=== PATIENT | female | born 1955 | race Caucasian/White ===

== ENCOUNTER 2016-12-20 10:16 | Outpatient (CLI) | payer MEDICARE, MEDICAID ==
[2016-12-20 11:07] LABS: #Basophils 0.1 thou/uL (0.0-0.2); #Lymphocytes 1.5 thou/uL (1.20-3.40); #Monocytes 0.5 thou/uL (0.11-0.59); #Neutrophils 3.9 thou/uL (1.40-6.50); %Eosinophils 0.2 % (0.0-10.0); %Lymphocytes 25.8 % (21.0-51.0); %Monocytes 7.6 % (0.0-10.0); %Neutrophils 65.5 % (42.0-75.0); Hemoglobin 14.7 g/dL (12.0-16.0); Mean Corpuscular HGB CONC 33.4 g/dL (32.0-36.0); Mean Corpuscular Volume 98.8 fl (81.0-99.0); Mean Platelet Volume 8.8 fL (7.4-10.4); Platelet Count 178 thou/uL (130-400); RBC Distribution Width 15.1 % (11.5-14.5); Red Blood Cell (RBC) Count 4.46 mill/uL (4.20-5.40); White Blood Cell (WBC) Count 5.9 thou/uL (4.8-10.8)
[2016-12-20 11:15] LABS: Hemoglobin A1c 5.1 % (4.0-6.0)
[2016-12-20 11:23] LABS: ALT (SGPT) 17 U/L (8-55); AST (SGOT) 22 U/L (5-34); Albumin 3.8 g/dL (3.5-5.0); Alkaline Phosphatase 58 U/L (40-150); Anion Gap 14 mmol/L (10-20); BUN (Urea Nitrogen) 7 mg/dL (9.8-20.1); Bilirubin, Total 0.6 mg/dL (0.2-1.2); Calc. Creatinine Clearance 0 mL/min (70-130); Carbon Dioxide 27 mmol/L (22-29); Cardiac Risk 3.5 (Less than 4.5); Chloride 106 mmol/L (98-107); Cholesterol 197 mg/dl (< 200 Desired); Estimated GFR-MDRD 70; Globulin 2.9 g/dL (2.4-3.5); Glucose 104 mg/dL (70-105); HDL Cholesterol 57 mg/dL (>60 Neg Risk); LDL Cholesterol, Calculated 102 mg/dL; Potassium 3.8 mmol/L (3.5-5.1); Protein, Total 6.7 g/dL (6.0-8.3); Sodium 143 mmol/L (136-145); Triglycerides 189 mg/dL (Less than 150)
[2016-12-20 11:42] LABS: Vitamin D, 25 Hydroxy 30.8 ng/ml (> 30.0)
[2016-12-20 11:55] LABS: Clarity Slightly Cloudy (Clear); Leukocyte Trace (Negative); Specific Gravity, Urine 1.025 (1.005-1.030)
[2016-12-20 11:57] LABS: Glucose, Urine (Dipstick) Negative (Negative); Nitrite Positive (Negative); Protein, Urine (Dipstick) Negative (Neg-Trace)
[2016-12-20 11:58] LABS: Bilirubin Negative (Negative); Blood, Urine Small (Negative); Urobilinogen 0.2 mg/dL (0.2-1.0)
[2016-12-20 12:01] LABS: Bacteria/HPF 4+ HPF (None Seen)
[2016-12-21 22:24] LABS: HPV High Risk Type 16 Negative (Negative); HPV High Risk Type 18 Negative (Negative); HPV Other High Risk Types Negative (Negative)
== END 2016-12-20 10:17 ==
LOC: MADLABBHPM 10:16
PROVIDERS: ATTEND Family Medicine
DX: Z01.419 Encounter for gynecological examination (general) (routine) without abnormal findings (principal)
CPT/HCPCS: 36415; 80053; 80061; 81001; 82306; 83036; 84443; 85025; 87624; 88142; G0123

== ENCOUNTER 2017-09-19 11:26 | Outpatient (CLI) | payer MEDICARE, OTHER | END 2017-09-19 11:27 | disposition home or self-care (01) | LOC: MADLABBHPM 11:26 | PROVIDERS: ATTEND Family Medicine | DX: R35.0 Frequency of micturition (principal) | CPT/HCPCS: 36415; 87086 ==

== ENCOUNTER 2018-03-19 13:53 | Emergency (ER) | payer MEDICARE, OTHER ==
[2018-03-19] MEDS ORDERED: HYDROcodone/Acetaminophen 10/325 mg Tablet ONE (14:27)
[2018-03-19] MEDS ORDERED: Ibuprofen 800 MG TAB ONE (14:27)
[2018-03-19] MEDS ORDERED: Acetaminophen 325 MG TAB ONE (14:27)
== END 2018-03-19 14:36 | disposition home or self-care (01) ==
LOC: MADERS 13:53
DX: K02.9 Dental caries, unspecified (principal); F41.9 Anxiety disorder, unspecified; F31.9 Bipolar disorder, unspecified; F17.210 Nicotine dependence, cigarettes, uncomplicated; I10 Essential (primary) hypertension; K21.9 Gastro-esophageal reflux disease without esophagitis; Z79.899 Other long term (current) drug therapy
CPT/HCPCS: 99282

== ENCOUNTER 2018-03-20 09:15 | Emergency (ER) | payer MEDICARE, OTHER ==
[2018-03-20] MEDS ORDERED: Sodium Chloride 0.9% 100 ML BAG ONE (09:20)
[2018-03-20] MEDS ORDERED: Sodium Chloride 0.9% 1,000 ML BAG ONE (09:20)
[2018-03-20] MEDS ORDERED: Morphine 4 MG/ML VIAL ONE (09:47)
[2018-03-20] MEDS ORDERED: Piperacillin/Tazobactam 4.5 GM VIAL ONE (09:47)
[2018-03-20 09:54] LABS: #Lymphocytes 1.1 thou/uL (1.20-3.40); #Monocytes 0.4 thou/uL (0.11-0.59); #Neutrophils 4.6 thou/uL (1.40-6.50); %Basophils 0.8 % (0.0-1.0); %Eosinophils 0.2 % (0.0-10.0); %Lymphocytes 17.3 % (21.0-51.0); %Monocytes 6.8 % (0.0-10.0); %Neutrophils 74.9 % (42.0-75.0); Hemoglobin 13.9 g/dL (12.0-16.0); Mean Corpuscular HGB CONC 32.1 g/dL (32.0-36.0); Mean Corpuscular Hemoglobin 33.3 pg (27.0-31.0); Mean Corpuscular Volume 103.8 fL (78.0-98.0); Mean Platelet Volume 6.4 fL (7.4-10.4); Platelet Count 192 thou/uL (130-400); RBC Distribution Width 15.6 % (11.5-14.5); Red Blood Cell (RBC) Count 4.19 mill/uL (4.20-5.40); White Blood Cell (WBC) Count 6.1 thou/uL (4.8-10.8)
[2018-03-20 10:16] LABS: ALT (SGPT) 26 U/L (8-55); AST (SGOT) 25 U/L (5-34); Albumin 3.7 g/dL (3.4-4.8); Alkaline Phosphatase 174 U/L (40-150); Anion Gap 14 mmol/L (10-20); BUN (Urea Nitrogen) 6 mg/dL (9.8-20.1); Bilirubin, Total 0.6 mg/dL (0.2-1.2); Calc. Creatinine Clearance 0 mL/min (70-130); Calcium 9.1 mg/dL (7.8-10.44); Carbon Dioxide 28 mmol/L (23-31); Chloride 104 mmol/L (98-107); Estimated GFR-MDRD 85; Globulin 3.1 g/dL (2.4-3.5); Glucose 110 mg/dL (80-115); Protein, Total 6.8 g/dL (6.0-8.3); Sodium 141 mmol/L (136-145)
--- NOTE | 2018-03-20 11:29 | CT ---
CT OF THE SOFT TISSUES OF THE NECK WITH IV CONTRAST: INDICATION: Concern for a left-sided facial abscess. FINDINGS: The visualized intracranial contents appear within normal limits. No area of abnormal enhancement is demonstrated. There is marked soft tissue swelling involving the left aspect of the jaw surrounding the left mastic ator space. There are mildly prominent submandibular lymph nodes. There is a periosseous abscess in volving the left posterior mandible, adjacent to the angle, measuring 1.9 x 2.9 cm in its greatest AP and craniocaudad dimensions respectively. There are dental caries involving multiple teeth within t he mandible, but particularly involving the left posterior mandibular molars. No definite destructiv e osteolysis is seen involving the mandible. There is some periapical lucency involving the paracent ral incisors on the left of the mandible. The teeth of the maxilla are missing. Paranasal sinuses are clear. No acute fracture is evident. The visualized parotid, submandibular, a nd thyroid gland appear within normal limits. There is thickening of the anterior aspect of the platysma with some mild edema involving the strap m uscles of the lower neck. Mild edema projects into the anterior mediastinum. There is good opacification within the internal carotid arteries bilaterally. The jugular veins appe ar patent. Aerodigestive tract appears within normal limits. There is emphysematous change involving both lung apices. No definite acute osseous abnormality is e vident. IMPRESSION: 1. Prominent left facial cellulitis with periosseous abscess involving the left angle of the mandibl e. There is extensive edema involving the anterior aspect of the neck involving the strap muscles, a nd platysma with some edema extending into the anterior mediastinum. Oral maxillofacial surgical con sultation is recommended. 2. Numerous dental caries. 3. Emphysema. 4. Suspected reactive lymphadenopathy of the left submandibular region. POS: [facility]
== END 2018-03-20 11:02 | disposition short-term general hospital (02) ==
LOC: MADERS 09:15
DX: L03.211 Cellulitis of face (principal); K21.9 Gastro-esophageal reflux disease without esophagitis; I10 Essential (primary) hypertension; F31.9 Bipolar disorder, unspecified; F17.290 Nicotine dependence, other tobacco product, uncomplicated; F41.0 Panic disorder [episodic paroxysmal anxiety]; Z79.899 Other long term (current) drug therapy
CPT/HCPCS: 36415; 70491; 80053; 83605; 85025; 96365; 96375; J2270; J2543; J7050